=== PATIENT | female | born 2000 | race Caucasian/White ===

== ENCOUNTER 2023-11-21 18:17 | Emergency (ER) | payer OTHER, SELFPAY ==
[2023-11-21 18:22] VITALS: BP 126/81; PULSE 75; RESP 16; TEMP 36.6; O2SAT 100; BMI 24.5
--- NOTE | 2023-11-21 19:02 | ED.GENADULT ---
HPI - General Adult General Chief complaint: Allergic Reaction Stated complaint: Allergic reaction Time Seen by Provider: 11/21/23 22:34 Related Data Previous Rx's ?Medication ?Instructions ?Recorded famotidine 40 mg tablet (Pepcid) 40 mg PO DAILY #3 tabs 11/22/23 prednisone 50 mg tablet 50 mg PO DAILY #3 tabs 11/22/23 Allergies Allergy/AdvReac Type Severity Reaction Status Date / Time amoxicillin [AMOXICILLIN] Allergy Unknown RASH Verified 11/21/23 18:23 [facility] Social History Social History Advance Directives: No Advance Directives Information Provided: No Physical Exam ED Vital Signs: Vital Signs - 24 hr 11/21/23 18:22 11/21/23 21:44 11/22/23 00:00 Temperature 97.8 F 98.1 F 98.3 F Pulse Rate 75 70 68 Respiratory Rate 16 20 16 Blood Pressure 126/81 113/76 124/71 Pulse Oximetry 100 100 100 Oxygen Delivery Method Room Air Room Air Room Air BMI result Body Mass Index 24.5 Course Course Course Narrative: This is an RME done by [facility]: Additional HPI, ROS, PE not included below will be deferred to primary provider. 23 yo female presents w/ concerns of allergic reaction unclear to what itchy hives since lastnight Medications Administered Discontinued Medications Generic Name Dose Route Start Last Admin Trade Name Bre PRN Reason Stop Dose Admin Diphenhydramine HCl 50 mg 11/21/23 18:22 11/21/23 21:59 Diphenhydramine Hcl 25 Mg Capsule PO 11/21/23 18:23 50 mg ONCE ONE Administration Diphenhydramine HCl 50 mg 11/21/23 22:45 11/21/23 23:03 Diphenhydramine Hcl 50 Mg/Ml Vial IVPUSH 11/21/23 22:46 50 mg ONCE ONE Administration Famotidine 20 mg 11/21/23 22:45 11/21/23 23:03 Famotidine/Pf 20 Mg/2 Ml Vial IVPUSH 11/21/23 22:46 20 mg ONCE ONE Administration Sodium Chloride 1,000 mls @ 999 mls/hr 11/21/23 22:45 11/21/23 23:03 Ns IVCONT 11/21/23 23:45 999 mls/hr .Q1H1M ONE Administration Methylprednisolone Sodium Succinate 125 mg 11/21/23 22:45 11/21/23 23:03 Methylprednisolone Sod Succ 125 Mg/2 Ml Vial IVPUSH 11/21/23 22:46 125 mg ONCE ONE Administration Medical Decision Making Medical Decision Making MDM Narrative: -after the IV medications, patient states that she feels much better. Patient states that the rash significantly decreased, still present. Nearly resolved in the face. Patient has no angioedema, no difficulty breathing. -patient instructed to follow-up with her primary care physician. Patient likely will need some p.o. doses to resolve the rash. -patient will likely need to be referred to immunology for a skin scratched test. Critical Care Time Critical Care Time Critical Care Time: Yes Total Critical Care Time: 30 Attestation: I have personally provided critical care time. Time includes review of lab data, radiology results, discussion with consultants, and monitoring for potential decompensation. Intervention performed as documented. Discharge Plan Discharge Clinical Impression: Allergic reaction Patient Disposition: Home, Self-Care Instructions: General Allergic Reaction (ED), Allergy Testing (ED) Additional Instructions: Please follow-up with your primary care physician tomorrow. If you have any worsening or new symptoms, please return to the emergency room or call 911 Prescriptions: New prednisone 50 mg tablet 50 mg PO DAILY Qty: 3 0RF famotidine [Pepcid] 40 mg tablet 40 mg PO DAILY Qty: 3 0RF Print Language: Ethiopian
[2023-11-21 21:44] VITALS: BP 113/76; PULSE 70; RESP 20; TEMP 36.7; O2SAT 100
[2023-11-21] MEDS: diphenhydrAMINE HCL 25 MG CAPSULE 50 MG PO (21:59)
[2023-11-21] MEDS: Famotidine/PF 20 MG/2 ML VIAL IVPUSH (23:03)
[2023-11-21] MEDS: 0.9 % Sodium Chloride 1,000 ML 999 ML IVCONT (23:03)
[2023-11-21] MEDS: methylPREDNISolone Sod Succ 125 MG/2 ML VIAL IVPUSH (23:03)
[2023-11-21] MEDS: diphenhydrAMINE HCL 50 MG/ML VIAL IVPUSH (23:03)
[2023-11-22] VITALS: BP 124/71; PULSE 68; RESP 16; TEMP 36.8; O2SAT 100
[2023-11-22 01:50] VITALS: BP 124/71; PULSE 68; RESP 16; TEMP 36.8; O2SAT 100
== END 2023-11-22 01:13 | disposition home or self-care (01) ==
PROVIDERS: Emergency Provider Emergency Medicine
DX: L50.0 Allergic urticaria (principal); L50.9 Urticaria, unspecified
CPT/HCPCS: 96374; 96375; 99284; 99285; J1200; J2919